=== PATIENT | female | born 1955 | race Caucasian/White ===

== ENCOUNTER 2017-03-01 12:56 | Emergency (ER) | payer OTHER | END 2017-03-01 14:01 | disposition left against medical advice (07) | LOC: UCEAST 12:56 | DX: S29.9XXA Unspecified injury of thorax, initial encounter (principal); X58.XXXA Exposure to other specified factors, initial encounter; Y93.9 Activity, unspecified; Y92.9 Unspecified place or not applicable; Z53.21 Procedure and treatment not carried out due to patient leaving prior to being seen by health care provider ==

== ENCOUNTER 2017-06-11 08:50 | Emergency (ER) | payer OTHER ==
[2017-06-11 09:12] VITALS: BP 134/77
--- NOTE | 2017-06-11 10:02 | UC ---
Throat Pain/Nasal Lex HPI - History of Current Complaint Chief Complaint: UCGeneralIllness Stated Complaint: THROAT COMPLAINT Time Seen by Provider: 06/11/17 09:45 Hx Obtained From: Patient ?: No Onset/Duration: Gradual Onset - was exposed to strep throat from children 4 days ago, throat started hurting over past 2 days. no better today Severity: Moderate Associated Signs & Symptoms: Positive: Fever - Allergies/Home Medications Allergies/Adverse Reactions: Allergies Allergy/AdvReac Type Severity Reaction Status Date / Time Bee Venom Allergy Anaphylatic Verified 06/11/17 09:08 Shock Penicillins Allergy Hives Verified 06/11/17 09:08 PMH/Surg Hx/FS Hx/Imm Hx Previously Healthy: Yes - Surgical History Surgical History: Yes Surgery Procedure, Year, and Place: appe. tonsilectomy. lump removal x2 - Social History Alcohol Use: Daily Alcohol Amount: glass of wine Substance Use Type: None Smoking Status (MU): Never Smoked Tobacco Review of Systems Constitutional: Fever ENT: Sore Throat Respiratory: Negative Cardiovascular: Negative Gastrointestinal: Negative Neurological: Negative All Other Systems Reviewed And Are Negative: Yes Physical Exam Triage Information Reviewed: Yes Appearance: Well-Appearing, No Pain Distress, Well-Nourished Vital Signs: Initial Vital Signs Temp 98.7 F 06/11/17 09:09 Pulse 68 06/11/17 09:09 Resp 16 06/11/17 09:09 BP 134/77 06/11/17 09:09 Pulse Ox 99 06/11/17 09:09 Eyes: Positive: Conjunctiva Clear ENT: Positive: Pharyngeal erythema, TMs normal. Negative: Nasal drainage Respiratory Exam: Normal Respiratory: Positive: Lungs clear Cardiovascular Exam: Normal Cardiovascular: Positive: RRR Abdominal Exam: Normal Neurological Exam: Normal Skin Exam: Normal Throat Pain/Nasal Course/Dx - Differential Dx/Diagnosis Differential Diagnosis/HQI/PQRI: Pharyngitis, URI Provider Diagnoses: sore throat Discharge - Discharge Plan Condition: Good Disposition: HOME Prescriptions: Azithromycin TAB* [Zithromax TAB (Z-TY) 250 mg #6 tabs] 2 tab PO .TODAY, THEN 1 DAILY #1 ty Referrals: Bautista Rowley MD [Primary Care Provider] - 2 Days (If no better) Additional Instructions: drink plenty of fluids if sore throat worsens or is no better in 2 days, start antibiotic ibuprofen 600mg every 6 hours as needed for pain/fever
== END 2017-06-11 10:45 | disposition home or self-care (01) ==
LOC: UCEAST 08:50
DX: J02.9 Acute pharyngitis, unspecified (principal); Z20.818 Contact with and (suspected) exposure to other bacterial communicable diseases
CPT/HCPCS: 87651; 99212; G0463

== ENCOUNTER 2017-11-04 11:57 | Emergency (ER) | payer OTHER ==
--- NOTE | 2017-11-04 13:25 | UC ---
Laceration HPI - HPI Summary HPI Summary: c/o scalp laceration about 4 hrs ago when she bumped head at home, denies LOC, denies current dizziness or headache. States she does not have any pain, she took a dose of her migraine medication shortly before the accident occurred. - History Of Current Complaint Chief Complaint: UCLaceration Stated Complaint: HEAD LAC Time Seen by Provider: 11/04/17 13:00 Laceration Location: Parietal - left - Allergies/Home Medications Allergies/Adverse Reactions: Allergies Allergy/AdvReac Type Severity Reaction Status Date / Time Bee Venom Allergy Anaphylatic Verified 11/04/17 12:24 Shock Penicillins Allergy Hives Verified 11/04/17 12:24 Home Medications: Home Medications [id number] [Excedrin Extra Strength 250-250-65 mg] [History] PMH/Surg Hx/FS Hx/Imm Hx Previously Healthy: Yes - Surgical History Surgical History: Yes Surgery Procedure, Year, and Place: appe. tonsilectomy. lump removal x2 - Social History Alcohol Use: Daily Alcohol Amount: glass of wine Substance Use Type: None Smoking Status (MU): Never Smoked Tobacco Review of Systems Constitutional: Negative All Other Systems Reviewed And Are Negative: Yes Physical Exam Triage Information Reviewed: Yes Appearance: Well-Appearing Vital Signs: Initial Vital Signs Temp 98 F 11/04/17 12:25 Pulse 77 11/04/17 12:25 Resp 16 11/04/17 12:25 BP 154/80 11/04/17 12:25 Pulse Ox 100 11/04/17 12:25 Vital Signs Reviewed: Yes Neurological: Positive: Alert Skin: Positive: Other - partial thickness laceration of scalp left parietal area approx 1.8cm in length, not bleeding Laceration Course/Dx - Course/Dx Course Of Treatment: wendy applied to laceration, continue wound care, tylenol prn, patient has medication at home - Differential Dx - Laceration/Wound Provider Diagnoses: Laceration scalp. Elevated blood pressure reading Discharge - Discharge Plan Condition: Stable Disposition: HOME Patient Education Materials: Laceration (ED), Acute Wound Care (ED) Referrals: Bautista Rowley MD [Primary Care Provider] -
[2017-11-04 13:38] VITALS: BP 147/72
== END 2017-11-04 13:34 | disposition home or self-care (01) ==
LOC: UCEAST 11:57
DX: S01.01XA Laceration without foreign body of scalp, initial encounter (principal); R03.0 Elevated blood-pressure reading, without diagnosis of hypertension; W22.8XXA Striking against or struck by other objects, initial encounter; Y92.009 Unspecified place in unspecified non-institutional (private) residence as the place of occurrence of the external cause; Z88.0 Allergy status to penicillin
CPT/HCPCS: 12001; 99212; G0463

== ENCOUNTER 2019-01-20 08:55 | Emergency (ER) | payer OTHER ==
[2019-01-20 09:06] VITALS: BP 152/82
--- NOTE | 2019-01-20 09:10 | UC ---
Respiratory Complaint HPI - HPI Summary HPI Summary: Patient is 63 year old female , who present today to the urgent care with postnasal drip and congestion that has been going on intermittently for past few months. There is associated productive cough and some sore throat. Denies any fevers or chills. Denies any body aches. Her symptoms initially started in September and she got treatment with doxycycline with resolution and again developed similar symptoms. Sick contacts at the office. No chest pain or shortness of breath . No diaphoresis. Denies any abdominal pain , nausea or vomiting , diarrhea or constipation. She did have the flu shot this year - History of Current Complaint Chief Complaint: UCRespiratory Stated Complaint: COUGH /GEN ILLNESS Time Seen by Provider: 01/20/19 09:00 Hx Obtained From: Patient Hx Last Menstrual Period: postmenopausal ?: No Pain Intensity: 0 - Allergies/Home Medications Allergies/Adverse Reactions: Allergies Allergy/AdvReac Type Severity Reaction Status Date / Time bee venom protein (honey bee) Allergy Anaphylatic Verified 01/20/19 09:07 Shock Penicillins Allergy Hives Verified 01/20/19 09:07 PMH/Surg Hx/FS Hx/Imm Hx - Additional Past Medical History Additional PMH: Tuberous sclerosis Previously Healthy: Yes - Surgical History Surgical History: Yes Surgery Procedure, Year, and Place: appe. tonsilectomy. lump removal x2 - Social History Alcohol Use: Weekly Alcohol Amount: glass of wine Substance Use Type: None Smoking Status (MU): Never Smoked Tobacco Review of Systems All Other Systems Reviewed And Are Negative: Yes Constitutional: Positive: Negative Skin: Positive: Negative Eyes: Positive: Negative ENT: Positive: Sore Throat - Mild, Sinus Congestion, Sinus Pain/Tenderness Respiratory: Positive: Cough - Productive of phlegm Cardiovascular: Positive: Negative Gastrointestinal: Positive: Negative Genitourinary: Positive: Negative Motor: Positive: Negative Neurovascular: Positive: Negative Musculoskeletal: Positive: Negative Neurological: Positive: Negative Psychological: Positive: Negative Physical Exam - Summary Physical Exam Summary: Physical Exam: Const: Appears well. No signs of apparent distress present. Alert and oriented x 3. Musculo: Walks with a normal gait. Head/Face: Atraumatic, normocephalic on inspection. Eyes: EOMI and PERRLA in both eyes. Conjunctivae clear. No discharge noted ENT: Hearing normal, TM normal appearing bilaterally ( tenderness to palpation on maxillary and frontal sinus bilaterally Mild pharyngeal erythema along with cobblestoning noted on the posterior pharyngeal wall without any exudates . Uvula is midline. Anterior cervical ar lymphadenopathy noted. Nontender Respiratory: Respirations are unlabored. Lungs clear to auscultation bilaterally, no wheezing , rhonchi or rales noted . CVS: Regular rate and Rhythm, S1S2 normal , no murmurs identified. Extremities: Peripheral circulation is grossly normal. Pulses 2+ Abdomen : Soft non tender , nondistended , Bowel sounds present . No guarding , rebound tenderness or rigidity noted. Skin: No lesions or rash located on the upper extremities or on the lower extremities. Neuro: Cranial nerves II to XII intact, motor and sensory intact. DTR Intact bilaterally. Mood is normal. Affect is normal. Triage Information Reviewed: Yes Vital Signs: Initial Vital Signs Temp 96.7 F 01/20/19 09:02 Pulse 85 01/20/19 09:02 Resp 18 01/20/19 09:02 BP 152/82 01/20/19 09:02 Pulse Ox 97 01/20/19 09:02 Vital Signs Reviewed: Yes Diagnostic Evaluation - Laboratory O2 Sat by Pulse Oximetry: 97 Respiratory Course/Dx - Course Course Of Treatment: During the visit today, we discussed the findings and further plan to treat her with doxycycline. I will prescribe the medication to the pharmacy . Patient expressed understanding . - Differential Dx/Diagnosis Provider Diagnosis: Sinusitis Discharge - Sign-Out/Discharge Documenting (check all that apply): Patient Departure All imaging exams completed and their final reports reviewed: No Studies - Discharge Plan Condition: Stable Disposition: HOME Prescriptions: DOXYcycline CAP(*) [DOXYcycline 100MG CAP(*)] 100 mg PO BID 14 Days #28 cap Fluticasone NASAL SPRAY 50MCG* [Flonase NASAL SPRAY 50MCG*] 1 spray BOTH NARES DAILY #1 btl Patient Education Materials: Sinusitis (ED) Referrals: Bautista Rowley MD [Primary Care Provider] - 1 Week Additional Instructions: Please start taking the medication as prescribed to the pharmacy . Follow up with your primary care doctor in 1 week Patients blood pressure slightly high in Urgent care today , plan follow up with PCP for better control within 1 month. Return to Urgent care / ER if symptoms get worse. - Billing Disposition and Condition Condition: STABLE Disposition: Home
== END 2019-01-20 09:39 | disposition home or self-care (01) ==
LOC: UCEAST 08:55
DX: J32.9 Chronic sinusitis, unspecified (principal); J02.9 Acute pharyngitis, unspecified; Z88.0 Allergy status to penicillin; Z91.030 Bee allergy status
CPT/HCPCS: 99212; G0463